=== PATIENT | female | born 1970 | race Hispanic/Latino ===

== ENCOUNTER 2022-09-25 04:19 | Emergency (ER) | payer SELFPAY ==
[2022-09-25] MEDS ORDERED: NA CHLORIDE 0.9% 1,000 ML ONE (04:54)
[2022-09-25] MEDS ORDERED: ONDANSETRON 4 MG/2 ML VIAL ONE (04:54)
[2022-09-25 05:17] LABS: Urine Blood 2+ (Negative); Urine Glucose Negative (Negative); Urine Protein 2+ (Negative); Urine Specific Gravity >=1.030 (1.005-1.030)
[2022-09-25 05:21] LABS: Urine Specific Gravity/Preg >1.030 (1.005-1.030)
[2022-09-25 05:28] LABS: Urine Bacteria <20 /HPF (<20); Urine Mucus Slight /HPF (None Seen); Urine RBC <5 /HPF (None Seen)
[2022-09-25 05:42] LABS: Absolute Lymphocytes (CBC) 2.3 K/uL (0.7-4.9); Hematocrit 45.2 % (36.0-45.0); Lymphocytes % 21.5 % (15.3-44.8); MCV 87.5 fL (80-100); MPV 10.9 fL (7.6-11.3); RBC Red Blood Cell Count 5.17 M/uL (3.86-4.86)
[2022-09-25 05:47] LABS: Albumin 3.6 g/dL (3.4-5.0); Bilirubin Total 0.2 mg/dL (0.2-1.0); Potassium 3.7 mmol/L (3.5-5.1); Protein, Total 8.3 g/dL (6.4-8.2)
--- NOTE | 2022-09-25 06:43 | ER ---
Nurse's Notes [facility] Name: Jyoti Estes Age: 52 yrs Sex: Female : 1970 Arrival Date: 09/25/2022 Time: 04:27 Bed 6 Private MD: Diagnosis: Vomiting and diarrhea;Gastroenteritis Presentation: 09/25 04:41 Chief complaint: Patient states: I have had N/V/D for 3 days now, last night I went 10 aa9 times, I have not eaten in 3 days due to a lack of appetite. Coronavirus screen: Vaccine status: Patient reports receiving the 2nd dose of the covid vaccine. Ebola Screen: No symptoms or risks identified at this time. Initial Sepsis Screen: Does the patient meet any 2 criteria? No. Patient's initial sepsis screen is negative. Does the patient have a suspected source of infection? No. Patient's initial sepsis screen is negative. Risk Assessment: Do you want to hurt yourself or someone else? Patient reports no desire to harm self or others. Onset of symptoms was September 22, 2022. 04:41 Method Of Arrival: Ambulatory aa9 04:41 Acuity: KRISTIN 3 aa9 Triage Assessment: 04:50 General: Appears comfortable, obese, well groomed, Behavior is calm, cooperative, aa9 appropriate for age. Pain: Complains of pain in abdomen Pain currently is 5 out of 10 on a pain scale. Is intermittent, Also complains of nausea. EENT: No signs and/or symptoms were reported regarding the EENT system. Neuro: Level of Consciousness is awake, alert, obeys commands, Oriented to person, place, time, situation. Cardiovascular: Patient's skin is warm and dry. Respiratory: Airway is patent Respiratory effort is even, unlabored. GI: Abdomen is obese, Abd is soft and non tender X 4 quads. Reports diarrhea, nausea, vomiting. : No signs and/or symptoms were reported regarding the genitourinary system. Derm: Skin is intact, is healthy with good turgor, Skin is dry, Skin is pink, warm \T\ dry. Historical: - Allergies: 04:47 No Known Allergies; aa9 - Home Meds: 04:47 lisinopril 40 mg Oral tab [Active]; carvedilol oral [Active]; aa9 - PMHx: 04:47 Hypertensive disorder; aa9 - PSHx: 04:47 None; aa9 - Immunization history:: Client reports receiving the 2nd dose of the Covid vaccine. - Social history:: Smoking status: Patient denies any tobacco usage or history of. Screenin:51 Abuse screen: Denies threats or abuse. Denies injuries from another. Nutritional aa9 screening: Has had N/V for 3 or more days. Tuberculosis screening: No symptoms or risk factors identified. Fall Risk None identified. Assessment: 04:57 General: Appears in no apparent distress. well groomed, Behavior is calm, cooperative, tw5 appropriate for age. Pain: Complains of pain in abdomen Pain currently is 6 out of 10 on a pain scale. Neuro: Level of Consciousness is awake, alert, obeys commands, Oriented to person, place, time, situation. Respiratory: Airway is patent Trachea midline. GI: Reports diarrhea, nausea, vomiting. 06:17 Reassessment: Patient states feeling better. Patient states symptoms have improved. tw5 General: Behavior is. Vital Signs: 04:41 BP 108 / 48; Pulse 77; Resp 18 S; Pulse Ox 99% on R/A; Weight 104.33 kg (R); Height 5 aa9 ft. 9 in. (175.26 cm) (R); Pain 5/10; 04:57 BP 125 / 77; Pulse 74; Resp 18; Pulse Ox 97% on R/A; tw5 05:15 BP 120 / 75; Pulse 70; Resp 18 S; Pulse Ox 96% on R/A; aa9 05:30 BP 130 / 74; Pulse 65; Resp 18 S; Pulse Ox 98% ; aa9 06:17 BP 125 / 64; Pulse 62; Resp 18; Pulse Ox 100% on R/A; tw5 04:41 Body Mass Index 33.96 (104.33 kg, 175.26 cm) aa9 ED Course: 04:27 Patient arrived in ED. ja2 04:34 Clarissa Thompson, SALAS is Primary Nurse. aa9 04:40 Africa Josue MD is Attending Physician. sd2 04:47 Triage completed. aa9 04:51 Arm band placed on. aa9 04:51 Patient has correct armband on for positive identification. Bed in low position. Call aa9 light in reach. Side rails up X2. Adult w/ patient. Pulse ox on. NIBP on. 04:57 Door closed. Noise minimized. Warm blanket given. 04:57 Initial lab(s) drawn, by me, sent to lab. Inserted saline lock: 20 gauge in right tw5 antecubital area, using aseptic technique. Blood collected. 05:16 Urine Microscopic Only Sent. mm9 05:19 Lipase Sent. tw5 05:19 CMP Sent. tw 05:19 CBC with Diff Sent. tw 05:19 Urine collected: clean catch specimen, cloudy. mm9 06:18 Diet: Patient given water. tw5 06:54 No provider procedures requiring assistance completed. IV discontinued, intact, tw5 bleeding controlled, No redness/swelling at site. Pressure dressing applied. Administered Medications: 05:19 Drug: NS 0.9% 1000 ml Route: IV; Rate: 1000 ml; Site: right antecubital; 06:55 Follow up: Response: No adverse reaction; IV Status: Completed infusion; IV Intake: tw5 1000ml 05:19 Drug: Zofran (Ondansetron) 4 mg Route: IVP; Site: right antecubital; 06:55 Follow up: Response: No adverse reaction; Nausea is decreased Medication: 04:51 VIS not applicable for this client. aa9 Intake: 06:55 IV: 1000ml; Total: 1000ml. Outcome: 06:42 Discharge ordered by . 06:55 Discharged to home ambulatory. 06:55 Condition: improved 06:55 Discharge instructions given to patient, Instructed on discharge instructions, follow up and referral plans. medication usage, Demonstrated understanding of instructions, follow-up care, medications, Prescriptions given X 1. 06:55 Patient left the ED. Signatures: Nat Villasenor ja2 Annika Oh tw5 Africa Josue MD MD sd2 Clarissa Thompson RN RN suman9 Jyoti Morrison mm9 Corrections: (The following items were deleted from the chart) 04:50 04:47 PMHx: None; cheko will9
--- NOTE | 2022-09-25 06:43 | EDPHYS ---
Physician Documentation [facility] Name: Jyoti Estes Age: 52 yrs Sex: Female : 1970 Arrival Date: 09/25/2022 Time: 04:27 Bed 6 Private MD: ED Physician Africa Josue HPI: 09/25 05:09 This 52 yrs old Female presents to ER via Ambulatory with complaints of sd2 Vomiting/Diarrhea. 05:09 52 yo F presents with CC of vomiting and diarrhea for the past 3 days. Denies any sd2 fevers, new food exposures, recent sick contacts or urinary symptoms. Has been able to keep Gatorade down but states unable to keep water down. No prior abdominal surgeries or significant abdominal pain. . Historical: - Allergies: 04:47 No Known Allergies; aa9 - Home Meds: 04:47 lisinopril 40 mg Oral tab [Active]; carvedilol oral [Active]; aa9 - PMHx: 04:47 Hypertensive disorder; aa9 - PSHx: 04:47 None; aa9 - Immunization history:: Client reports receiving the 2nd dose of the Covid vaccine. - Social history:: Smoking status: Patient denies any tobacco usage or history of. ROS: 05:09 Constitutional: Negative for fever, chills, and weight loss, Eyes: Negative for injury, sd2 pain, redness, and discharge, Cardiovascular: Negative for chest pain, palpitations, and edema, Respiratory: Negative for shortness of breath, cough, wheezing. 05:09 : Negative for dysuria, urinary frequency, hesitancy, urgency and hematuria. MS/Extremity: Negative for injury and deformity, Skin: Negative for injury, rash, and discoloration, Neuro: Negative for headache, numbness and tingling. 05:09 Abdomen/GI: Positive for nausea, vomiting, and diarrhea, Negative for abdominal pain, abdominal distension. Exam: 05:09 Constitutional: This is a well developed, well nourished patient who is awake, alert, sd2 and in no acute distress. Head/Face: Normocephalic, atraumatic. Eyes: EOMI, normal conjunctiva bilaterally Chest/axilla: Normal chest wall appearance and motion. Nontender with no deformity. Cardiovascular: Regular rate and rhythm with a normal S1 and S2. No gallops, murmurs, or rubs. 2+ distal pulses. Respiratory: Lungs have equal breath sounds bilaterally, clear to auscultation and percussion. No rales, rhonchi or wheezes noted. No increased work of breathing, no retractions or nasal flaring. Abdomen/GI: Soft, non-tender, with normal bowel sounds. No guarding or rebound. No evidence of tenderness throughout. Skin: Warm, dry with normal turgor. Normal color with no rashes, no lesions, and no evidence of cellulitis. MS/ Extremity: Pulses equal, no cyanosis. Neurovascular intact. Full, normal range of motion. Ambulatory without difficulty. Psych: Awake, alert, with orientation to person, place and time. Behavior, mood, and affect are within normal limits. Vital Signs: 04:41 BP 108 / 48; Pulse 77; Resp 18 S; Pulse Ox 99% on R/A; Weight 104.33 kg (R); Height 5 aa9 ft. 9 in. (175.26 cm) (R); Pain 5/10; 04:57 BP 125 / 77; Pulse 74; Resp 18; Pulse Ox 97% on R/A; tw5 05:15 BP 120 / 75; Pulse 70; Resp 18 S; Pulse Ox 96% on R/A; aa9 05:30 BP 130 / 74; Pulse 65; Resp 18 S; Pulse Ox 98% ; aa9 06:17 BP 125 / 64; Pulse 62; Resp 18; Pulse Ox 100% on R/A; tw5 04:41 Body Mass Index 33.96 (104.33 kg, 175.26 cm) aa9 MDM: 04:40 Patient medically screened. sd2 05:09 Differential diagnosis: gastritis, cholecystitis, pancreatitis, appendicitis, sd2 diverticulitis, viral gastroenteritis, among others. Data reviewed: vital signs, nurses notes. 06:40 Data reviewed: lab test result(s). Counseling: I had a detailed discussion with the sd2 patient and/or guardian regarding: the historical points, exam findings, and any diagnostic results supporting the discharge/admit diagnosis, lab results, the need for outpatient follow up, to return to the emergency department if symptoms worsen or persist or if there are any questions or concerns that arise at home. Medical screen evaluation completed. EMTALA emergency medical condition absent. ED course: Labs reviewed and grossly WNCL. No signs of significant clinical dehydration or electrolyte abnormalities. Benign abdominal exam. Suspect viral gastroenteritis. Pt tolerating PO after Zofran and feeling improved. Will dc home with continued supportive care. Pt verbalizes understanding of discharge plan and strict return precautions. . 09/25 04:47 Order name: CBC with Diff; Complete Time: 06:07 sd2 09/25 04:47 Order name: CMP; Complete Time: 06:07 sd2 09/25 04:47 Order name: Lipase; Complete Time: 06:07 sd2 09/25 04:47 Order name: Urine Microscopic Only; Complete Time: 06:07 sd2 09/25 05:17 Order name: Urine Dipstick-Ancillary; Complete Time: 06:07 EDMS 09/25 05:19 Order name: Urine --Ancillary (enter results); Complete Time: 06:07 wm 09/25 04:47 Order name: Urine Dipstick-Ancillary (obtain specimen); Complete Time: 05:17 sd2 09/25 06:07 Order name: PO challenge; Complete Time: 06:17 sd2 Administered Medications: 05:19 Drug: NS 0.9% 1000 ml Route: IV; Rate: 1000 ml; Site: right antecubital; tw5 06:55 Follow up: Response: No adverse reaction; IV Status: Completed infusion; IV Intake: tw5 1000ml 05:19 Drug: Zofran (Ondansetron) 4 mg Route: IVP; Site: right antecubital; tw5 06:55 Follow up: Response: No adverse reaction; Nausea is decreased tw5 Disposition Summary: 09/25/22 06:42 Discharge Ordered Location: Home sd2 Problem: new sd2 Symptoms: have improved sd2 Condition: Stable sd2 Diagnosis - Vomiting and diarrhea sd2 - Gastroenteritis sd2 Followup: sd2 - With: Private Physician - When: 2 - 3 days - Reason: Recheck today's complaints, Continuance of care, Re-evaluation by your physician Discharge Instructions: - Discharge Summary Sheet sd2 - Food Choices to Help Relieve Diarrhea, Adult sd2 - Diarrhea, Adult sd2 - Nausea and Vomiting, Adult sd2 Forms: - Medication Reconciliation Form sd2 - Thank You Letter sd2 - Antibiotic Education sd2 - Prescription Opioid Use sd2 Prescriptions: - ondansetron 8 mg Oral tablet,disintegrating - take 1 tablet by ORAL route every 8 hours As needed; 15 tablet; Refills: 0, sd2 Product Selection Permitted Signatures: Dispatcher [employer] Annika Murdock tw5 Africa Josue MD MD sd2 Clarissa Thompson RN RN aa9 Corrections: (The following items were deleted from the chart) 04:50 04:47 PMHx: None; aa9 aa9
[2022-09-25 07:21] VITALS: BP 125/64; O2SAT 100
== END 2022-09-25 06:55 | disposition home or self-care (01) ==
LOC: ER 04:19
DX: K52.9 Noninfective gastroenteritis and colitis, unspecified (principal); I10 Essential (primary) hypertension
CPT/HCPCS: 36415; 80053; 81003; 81015; 81025; 83690; 85025; 96361; 96374; 99284; J2405; J7030

== ENCOUNTER 2022-10-10 10:28 | Emergency (ER) | payer SELFPAY ==
--- OUTSIDE RECORDS SUMMARY | 2022-10-10 10:31 | XMS REPORT | Continuity of Care Document ---
:1970 Author Organization [facility] t Address [address] [place] [address] [address] [place] [address] Care Team Providers Name Role Phone Unavailable Unavailable Unavailable Problems This patient has no known problems. Allergies, Adverse Reactions, Alerts This patient has no known allergies or adverse reactions. Medications This patient has no known medications. Procedures This patient has no known procedures. Results This patient has no known results.
--- NOTE | 2022-10-10 12:15 | RAD REPORT ---
EXAM DESCRIPTION: RAD - Ankle Right 3 View - 10/10/2022 11:44 am CLINICAL HISTORY: ankle pain, swelling COMPARISON: No comparisons FINDINGS: No fracture, dislocation or periosteal reaction. No joint effusion seen. No joint space na rrowing. Minimal degenerative spurring seen at the medial malleolus. Patient has a very large spur at the Achilles attachment. Minimal plantar spurring is present. Prominent lateral and anterior ankle s oft tissue swelling present. IMPRESSION: Right ankle soft tissue swelling without fracture or acute bone finding.
--- NOTE | 2022-10-10 12:17 | RAD REPORT ---
EXAM DESCRIPTION: RAD - Foot Right 3 View - 10/10/2022 11:44 am CLINICAL HISTORY: PAIN, twisting injury COMPARISON: No comparisons FINDINGS: The second and third middle phalanges are dislocated dorsally at each PIP joint. No fractu re is identified. No fracture is confirmed. There is no periosteal reaction. No bone destructive hooker ge. Patient has very or spurring the Achilles attachment. No air or foreign body in the soft tissues. IMPRESSION: Dorsal directed dislocation of the second and third middle phalanges. No fracture identi fied.
--- NOTE | 2022-10-10 13:02 | EDPHYS ---
Physician Documentation [facility] Name: Jyoti Estes Age: 52 yrs Sex: Female : 1970 Arrival Date: 10/10/2022 Time: 10:31 Bed 10 Private MD: ED Physician Rene Henderson HPI: 10/10 10:43 This 52 yrs old Female presents to ER via Wheelchair with complaints of Toe jmm Injury, Ankle Injury. 10:43 The patient presents with an injury, pain. Onset: The symptoms/episode began/occurred jmm acutely. Associated signs and symptoms: Pertinent positives: swelling. This is a 52 year old female with a history of htn that presents to the ED with complaints of lower extremity swelling after a fall which occurred in the shower. Denies other injury. . 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 - Social history:: Smoking status: Patient denies any tobacco usage or history of. ROS: 10:43 Constitutional: Negative for fever, chills, and weight loss, Cardiovascular: Negative jmm for chest pain, palpitations, and edema, Respiratory: Negative for shortness of breath, cough, wheezing, and pleuritic chest pain. 10:43 MS/extremity: Positive for pain, swelling. 10:43 All other systems are negative. Exam: 10:43 Constitutional: This is a well developed, well nourished patient who is awake, alert, jmm and in no acute distress. Head/Face: atraumatic. Eyes: EOMI, no conjunctival erythema appreciated ENT: Moist Mucus Membranes Neck: Trachea midline, Supple Chest/axilla: Normal chest wall appearance and motion. Cardiovascular: Regular rate and rhythm. No edema appreciated Respiratory: Normal respirations, no respiratory distress appreciated Abdomen/GI: Non distended Back: Normal ROM Skin: General appearance color normal 10:43 Musculoskeletal/extremity: swelling noted to the right ankle, compartments are soft, full dorsalis pulse, NVI. 10:43 Skin: Appearance: Color: normal in color. 10:43 Neuro: Motor: is normal. 10:43 Psych: Behavior/mood is pleasant, cooperative. Vital Signs: 10:39 BP 164 / 72; Pulse 60; Resp 20; Temp 98.6; Pulse Ox 97% ; Weight 108.86 kg; Height 5 kb3 ft. 9 in. (175.26 cm); Pain 10/10; 12:54 BP 135 / 64; Pulse 60; Resp 18; Pulse Ox 99% on R/A; tm3 13:07 BP 129 / 66; Pulse 64; Resp 18; Pulse Ox 99% on R/A; ld1 10:39 Body Mass Index 35.44 (108.86 kg, 175.26 cm) kb3 MDM: 10:43 Patient medically screened. [facility] 11:22 Data reviewed: vital signs, nurses notes. Counseling: I had a detailed discussion with nikita the patient and/or guardian regarding: the historical points, exam findings, and any diagnostic results supporting the discharge/admit diagnosis. 13:00 Counseling: I had a detailed discussion with the patient and/or guardian regarding: [facility] radiology results, the need for outpatient follow up, to return to the emergency department if symptoms worsen or persist or if there are any questions or concerns that arise at home. 10/10 10:53 Order name: Ankle Right 3 View XRAY; Complete Time: 12:16 [facility] 10/10 10:53 Order name: Foot Right 3 View XRAY; Complete Time: 12:20 [facility] 10/10 10:54 Order name: Ice pack; Complete Time: 10:54 mm9 10/10 12:25 Order name: Misc. Order: orthoshoe; Complete Time: 12:38 [facility] Administered Medications: No medications were administered Disposition Summary: 10/10/22 13:01 Discharge Ordered Location: Home [facility] Condition: Stable [facility] Diagnosis - 2nd and 3rd Toe Fracture [facility] Followup: nikita - With: Maico Sharpe DPM - When: 2 - 3 days - Reason: Recheck today's complaints, Continuance of care, Re-evaluation by your physician Discharge Instructions: - Discharge Summary Sheet [facility] - Toe Fracture Rehab-[facility] Forms: - Medication Reconciliation Form jmm - Thank You Letter jmkate - Antibiotic Education jm - Prescription Opioid Use [facility] Prescriptions: - Diclofenac Sodium 75 mg Oral Tablet Sustained Release - take 1 tablet by ORAL route 2 times per day; 30 tablet; Refills: 0, Product [facility] Selection Permitted Signatures: Dispatcher [employer] Rene Arndt MD MD cha Mickail, Joel, PA PA jmm Bradberry, Kelly, RN RN kb3 Jyoti Morrison [facility]
--- NOTE | 2022-10-10 13:02 | ER ---
Nurse's Notes [facility] Name: Jyoti Estes Age: 52 yrs Sex: Female : 1970 Arrival Date: 10/10/2022 Time: 10:31 Bed 10 Private MD: Diagnosis: 2nd and 3rd Toe Fracture Presentation: 10/10 10:39 Chief complaint: Patient states: slipped in the shower and twisted her right foot kb3 underneath her. Reports pain to top of right foot, medial and lateral ankle ankle and all toes. Coronavirus screen: Vaccine status: Patient reports receiving the 2nd dose of the covid vaccine. Client indicates they have traveled out of the [place] in the last 14 days. Ebola Screen: Patient negative for fever greater than or equal to 101.5 degrees Fahrenheit, and additional compatible Ebola Virus Disease symptoms Patient denies exposure to infectious person. Patient denies travel to an Ebola-affected area in the 21 days before illness onset. No symptoms or risks identified at this time. Initial Sepsis Screen: Does the patient meet any 2 criteria? No. Patient's initial sepsis screen is negative. Does the patient have a suspected source of infection? No. Patient's initial sepsis screen is negative. Risk Assessment: Do you want to hurt yourself or someone else? Patient reports no desire to harm self or others. Onset of symptoms was October 10, 2022 at 09:00. 10:39 Method Of Arrival: Wheelchair kb3 10:39 Acuity: KRISTIN 4 kb3 Triage Assessment: 10:41 General: Appears in no apparent distress. uncomfortable, Behavior is calm, cooperative. kb3 Pain: Complains of pain in right lateral malleolus, right medial malleolus, dorsum of right foot, right first toe, right second toe, right third toe, right fourth toe, right fifth toe, Right fourth toenail and Right fifth toenail Pain does not radiate. Pain currently is 10 out of 10 on a pain scale. Quality of pain is described as throbbing. 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 - Social history:: Smoking status: Patient denies any tobacco usage or history of. Screenin:42 Abuse screen: Denies threats or abuse. Denies injuries from another. Nutritional kb3 screening: No deficits noted. Tuberculosis screening: No symptoms or risk factors identified. Fall Risk None identified. Assessment: 10:42 Reassessment: Patient appears in no apparent distress at this time. No changes from kb3 previously documented assessment. General: see triage note. Musculoskeletal: Capillary refill < 3 seconds, Swelling present in right lateral malleolus, right medial malleolus and dorsum of right foot Reports pain in right lateral malleolus, right medial malleolus, dorsum of right foot, right first toe, right second toe, right third toe, right fourth toe and right fifth toe. Vital Signs: 10:39 BP 164 / 72; Pulse 60; Resp 20; Temp 98.6; Pulse Ox 97% ; Weight 108.86 kg; Height 5 kb3 ft. 9 in. (175.26 cm); Pain 10/10; 12:54 BP 135 / 64; Pulse 60; Resp 18; Pulse Ox 99% on R/A; tm3 13:07 BP 129 / 66; Pulse 64; Resp 18; Pulse Ox 99% on R/A; ld1 10:39 Body Mass Index 35.44 (108.86 kg, 175.26 cm) kb3 ED Course: 10:31 Patient arrived in ED. rg4 10:32 Giovany Arroyo PA is PHCP. jmm 10:32 Rene Henderson MD is Attending Physician. jmm 10:39 Anahi Woods, RN is Primary Nurse. kb3 10:41 Triage completed. kb3 10:41 Arm band placed on right wrist. kb3 10:42 Patient has correct armband on for positive identification. kb3 10:42 No provider procedures requiring assistance completed. Patient did not have IV access kb3 during this emergency room visit. 10:54 ice pack. mm9 11:46 Ankle Right 3 View XRAY In Process Unspecified. EDMS 11:46 Foot Right 3 View XRAY In Process Unspecified. EDMS 13:01 Maico Sharpe DPM is Referral Physician. breezy Administered Medications: No medications were administered Medication: 10:42 VIS not applicable for this client. kb3 Outcome: 13:01 Discharge ordered by . breezy 13:07 Discharged to home ambulatory. ld1 13:07 Condition: stable 13:07 Discharge instructions given to patient, family, Instructed on discharge instructions, follow up and referral plans. medication usage, Demonstrated understanding of instructions, follow-up care, medications, Prescriptions given X 1. 13:08 Patient left the ED. ld1 Signatures: Dispatcher [employer] EDMS Sudhir Glynn tm3 Giovany Arroyo PA PA jmm Garcia, Rubi rg4 Fouzia Heredia, RN RN ld1 Anahi Woods, RN RN kb3 Jyoti Morrison mm9
[2022-10-10 13:21] VITALS: TEMP 98.6
[2022-10-10 13:22] VITALS: O2SAT 99
[2022-10-10 13:24] VITALS: BP 129/66
== END 2022-10-10 13:08 | disposition home or self-care (01) ==
LOC: ER 10:28
DX: S92.501A Displaced unspecified fracture of right lesser toe(s), initial encounter for closed fracture (principal)
CPT/HCPCS: 99283

== ENCOUNTER 2023-08-22 08:42 | Emergency (ER) | payer SELFPAY ==
--- OUTSIDE RECORDS SUMMARY | 2023-08-22 08:45 | XMS REPORT | Continuity of Care Document ---
:1970 Author Organization [facility] t Address [address] [place] [id number] Care Team Providers Name Role Phone Unavailable Unavailable Unavailable Problems This patient has no known problems. Allergies, Adverse Reactions, Alerts This patient has no known allergies or adverse reactions. Medications This patient has no known medications. Procedures This patient has no known procedures. Results This patient has no known results.
--- NOTE | 2023-08-22 09:13 | ER ---
Nurse's Notes [facility] Name: Jyoti Estes Age: 53 yrs Sex: Female : 1970 Arrival Date: 08/22/2023 Time: 08:42 Bed 8 Private MD: Diagnosis: Cellulitis, foot bleeding Presentation: 08/22 09:00 Chief complaint: Patient states: Small wound to R foot that wont stop oozing blood. Has ll1 dry, cracked feet. Coronavirus screen: Vaccine status: Patient reports receiving the 2nd dose of the covid vaccine. Client denies travel out of the [place] in the last 14 days. At this time, the client does not indicate any symptoms associated with coronavirus-19. Ebola Screen: Patient denies travel to an Ebola-affected area in the 21 days before illness onset. Initial Sepsis Screen: Does the patient meet any 2 criteria? No. Patient's initial sepsis screen is negative. Does the patient have a suspected source of infection? Yes: Skin breakdown/wound. Risk Assessment: Do you want to hurt yourself or someone else? Patient reports no desire to harm self or others. Onset of symptoms was August 22, 2023. 09:00 Method Of Arrival: Ambulatory ll1 09:00 Acuity: KRISTIN 4 ll1 Historical: - Allergies: 09:02 No Known Allergies; ll1 - PMHx: 09:02 Hypertensive disorder; ll1 - PSHx: 09:02 breast SX (Hypertensive disorder); hand SX (Hypertensive disorder); ll1 - Immunization history:: Adult Immunizations up to date. - Social history:: Smoking status: Patient denies any tobacco usage or history of. Screenin:04 [facility] ED Fall Risk Assessment (Adult) History of falling in the last 3 months, ld1 including since admission No falls in past 3 months (0 pts). Abuse screen: Denies threats or abuse. Denies injuries from another. Nutritional screening: No deficits noted. Tuberculosis screening: No symptoms or risk factors identified. Assessment: 09:04 General: Appears in no apparent distress. comfortable, Behavior is calm, cooperative, ld1 appropriate for age. Pain: Complains of pain in lateral side of right heel Pain does not radiate. Pain currently is 7 out of 10 on a pain scale. Quality of pain is described as throbbing, Pain began 2-3 days ago. Is continuous. Neuro: Level of Consciousness is awake, alert, obeys commands, Oriented to person, place, time, situation. Cardiovascular: Capillary refill < 3 seconds Patient's skin is warm and dry. Respiratory: Airway is patent Respiratory effort is even, unlabored. GI: Abdomen is round non-distended. : No signs and/or symptoms were reported regarding the genitourinary system. EENT: No signs and/or symptoms were reported regarding the EENT system. Derm: Wound noted right foot Reports Getting pedicure 2 weeks ago and they cut her right heal. C/O pain to right foot. Musculoskeletal: No signs and/or symptoms reported regarding the musculoskeletal system. 09:06 Reassessment: ERP at bedside assessing patient. Applied antibiotic ointment to patient ld1 right heal and dressed wound. Vital Signs: 09:00 BP 148 / 81; Pulse 55; Resp 17; Temp 97.2; Pulse Ox 98% ; Weight 108.86 kg; Height 5 ll1 ft. 9 in. ; Pain 8/10; 09:04 BP 148 / 81; Pulse 84; Resp 18; Pulse Ox 100% on R/A; Pain 7/10; ld1 09:00 Body Mass Index 35.44 (108.86 kg, 175.26 cm) ll1 09:00 Pain Scale: Adult ll1 09:04 Pain Scale: Adult ld1 ED Course: 08:44 Patient arrived in ED. rg4 08:44 Marc Roth MD is Attending Physician. sp3 09:02 Triage completed. ll1 09:02 Arm band placed on Patient placed in an exam room, on a stretcher. ll1 09:04 Fouzia Giles, SALAS is Primary Nurse. ld1 09:04 Patient has correct armband on for positive identification. Bed in low position. Call ld1 light in reach. Side rails up X2. Pulse ox on. NIBP on. residential monitor on. Door closed. Noise minimized. Warm blanket given. 09:04 No provider procedures requiring assistance completed. Patient did not have IV access ld1 during this emergency room visit. Administered Medications: 09:07 Drug: Leclpobz-Rhftiuajxf-Yracrxlkm Topical Ointment 1 application Topical once Route: ld1 Topical; Site: affected area; Medication: 09:04 VIS not applicable for this client. ld1 Outcome: 09:12 Discharge ordered by . sp3 09:18 Discharged to home ambulatory, ld1 09:18 Condition: stable 09:18 Discharge instructions given to patient, Instructed on discharge instructions, follow up and referral plans. medication usage, Demonstrated understanding of instructions, follow-up care, medications, Prescriptions given X 1, :18 Patient left the ED. ld1 Signatures: Lety Pizarro rg4 Declan Rowe RN RN ll1 Fouzia Giles RN RN ld1 Marc Roth MD MD sp3 Corrections: (The following items were deleted from the chart) 09:02 09:00 Chief complaint: Patient states: Small wound to R foot that wont stop oozing ll1 blood. Had cracked feet. ll1
--- NOTE | 2023-08-22 09:13 | EDPHYS ---
Physician Documentation [facility] Name: Jyoti Estes Age: 53 yrs Sex: Female : 1970 Arrival Date: 08/22/2023 Time: 08:42 Bed 8 Private MD: ED Physician Marc Roth HPI: 08/22 09:07 This 53 yrs old Female presents to ER via Ambulatory with complaints of Foot sp3 Problem. 09:07 53-year-old female with history of hypertension presents to the ED with 2-day history sp3 of right-sided posterior lateral foot pain, drainage and mild bleeding subsequent to getting pedicure and skin abrasion during that process. Patient denies any direct trauma otherwise and has had no prior foot injury, surgery or other complication in the past. Review of systems are otherwise negative and she denies any proximal joint pain, difficulty walking, bleeding in other places, leg swelling, calf pain, prolonged immobilization, prior PE or DVT, chest pain, shortness of breath, fever, or any other signs or symptoms at this time.. Historical: - Allergies: 09:02 No Known Allergies; ll1 - PMHx: 09:02 Hypertensive disorder; ll1 - PSHx: 09:02 breast SX (Hypertensive disorder); hand SX (Hypertensive disorder); ll1 - Immunization history:: Adult Immunizations up to date. - Social history:: Smoking status: Patient denies any tobacco usage or history of. ROS: 09:08 Constitutional: Negative for fever, chills, and weight loss, Eyes: Negative for injury, sp3 pain, redness, and discharge, Neck: Negative for injury, pain, and swelling, Cardiovascular: Negative for chest pain, palpitations, and edema, Respiratory: Negative for shortness of breath, cough, wheezing, and pleuritic chest pain, Abdomen/GI: Negative for abdominal pain, nausea, vomiting, diarrhea, and constipation, Back: Negative for injury and pain, Neuro: Negative for headache, weakness, numbness, tingling, and seizure, Psych: Negative for depression, anxiety, suicide ideation, homicidal ideation, and hallucinations, Allergy/Immunology: Negative for hives, rash, and allergies, Endocrine: Negative for neck swelling, polydipsia, polyuria, polyphagia, and marked weight changes, Hematologic/Lymphatic: Negative for swollen nodes, abnormal bleeding, and unusual bruising, 09:08 All other systems are negative, Exam: 09:08 Constitutional: This is a well developed, well nourished patient who is awake, alert, sp3 and in no acute distress. Head/Face: Normocephalic, atraumatic. Eyes: Pupils equal round and reactive to light, extra-ocular motions intact. Lids and lashes normal. Conjunctiva and sclera are non-icteric and not injected. Cornea within normal limits. Periorbital areas with no swelling, redness, or edema. Neck: Trachea midline, no thyromegaly or masses palpated, and no cervical lymphadenopathy. Supple, full range of motion without nuchal rigidity, or vertebral point tenderness. No Meningismus. Chest/axilla: Normal chest wall appearance and motion. Nontender with no deformity. No lesions are appreciated. Cardiovascular: Regular rate and rhythm with a normal S1 and S2. No gallops, murmurs, or rubs. Normal PMI, no JVD. No pulse deficits. Respiratory: Lungs have equal breath sounds bilaterally, clear to auscultation and percussion. No rales, rhonchi or wheezes noted. No increased work of breathing, no retractions or nasal flaring. Abdomen/GI: Soft, non-tender, with normal bowel sounds. No distension or tympany. No guarding or rebound. No evidence of tenderness throughout. Back: No spinal tenderness. No costovertebral tenderness. Full range of motion. Skin: Warm, dry with normal turgor. Normal color with no rashes, no lesions, and no evidence of cellulitis. Neuro: Awake and alert, GCS 15, oriented to person, place, time, and situation. Cranial nerves II-XII grossly intact. Motor strength 5/5 in all extremities. Sensory grossly intact. Cerebellar exam normal. Normal gait. Psych: Awake, alert, with orientation to person, place and time. Behavior, mood, and affect are within normal limits. 09:08 Musculoskeletal/extremity: Patient has approximate 1 cm area of abrasion/possible infection with serosanguineous plus blood drainage on the posterior lateral aspect of the foot not on the plantar surface. Remainder of foot exam including neurovascular status is normal. There is no proximal abnormality including calf swelling.. Vital Signs: 09:00 BP 148 / 81; Pulse 55; Resp 17; Temp 97.2; Pulse Ox 98% ; Weight 108.86 kg; Height 5 ll1 ft. 9 in. ; Pain 8/10; 09:04 BP 148 / 81; Pulse 84; Resp 18; Pulse Ox 100% on R/A; Pain 7/10; ld1 09:00 Body Mass Index 35.44 (108.86 kg, 175.26 cm) ll1 09:00 Pain Scale: Adult ll1 09:04 Pain Scale: Adult ld1 MDM: 08:58 Patient medically screened. sp3 09:11 Data reviewed: vital signs, nurses notes. ED course: Patient likely has a mild sp3 infection/bleeding from the pedicure with a scraped off the skin excess on her foot. We will treat with triple antibiotic and dressing here in the ED. There is no active bleeding. We will discharge her on p.o. Bactrim and OTC topical ointment at this time.. Administered Medications: 09:07 Drug: Cababpsi-Lgexbdaioo-Nkkzjorud Topical Ointment 1 application Topical once Route: ld1 Topical; Site: affected area; Disposition Summary: 08/22/23 09:12 Discharge Ordered Notes: Location: Home sp3 Condition: Stable sp3 Diagnosis - Cellulitis, foot bleeding sp3 Followup: sp3 - With: Private Physician - When: Upon discharge from the Emergency Department - Reason: If symptoms return Discharge Instructions: - Discharge Summary Sheet sp3 - Cellulitis, Adult sp3 Forms: - Medication Reconciliation Form sp3 - Thank You Letter sp3 - Antibiotic Education sp3 - Prescription Opioid Use sp3 - Patient Portal Instructions sp3 - Leadership Thank You Letter sp3 Prescriptions: - Bactrim DS 800-160 mg Oral tablet - take 1 tablet ORAL route every 12 hours for 5 days; 10 tablet; Refills: 0, sp3 Product Selection Permitted Signatures: Declan Rowe RN RN ll1 Fouzia Giles RN RN ld1 Marc Roth MD MD sp3
[2023-08-22] MEDS ORDERED: BACI/NEOMYCIN/POLY OINT 15GM TOP ONE (09:21)
[2023-08-22 09:33] VITALS: BP 148/81; TEMP 97.2
[2023-08-22 09:34] VITALS: O2SAT 100
== END 2023-08-22 09:18 | disposition home or self-care (01) ==
LOC: ER 08:42
DX: L03.115 Cellulitis of right lower limb (principal)
CPT/HCPCS: 99284

== ENCOUNTER 2023-09-21 11:16 | Emergency (ER) | payer SELFPAY ==
--- OUTSIDE RECORDS SUMMARY | 2023-09-21 11:52 | XMS REPORT | Continuity of Care Document ---
:1970 Author Organization [facility] t Address [address] [place] [id number] Care Team Providers Name Role Phone Unavailable Unavailable Unavailable Problems This patient has no known problems. Allergies, Adverse Reactions, Alerts This patient has no known allergies or adverse reactions. Medications This patient has no known medications. Procedures This patient has no known procedures. Results This patient has no known results.
--- NOTE | 2023-09-21 12:10 | RAD REPORT ---
EXAM DESCRIPTION: RAD - Foot Right 3 View - 09/21/2023 11:52 am CLINICAL HISTORY: infection COMPARISON: Foot Right 3 View dated 10/10/2022 TECHNIQUE: Right foot, 3 views. FINDINGS: No fracture, dislocation or periosteal reaction. Large spur at the Achilles tendon attachment. Soft tissue swelling and irregularity along the sole of the foot. No air or foreign body in the soft tissues. IMPRESSION: No acute abnormalities. Soft tissue swelling at the sole of the foot. Large spur at the Achilles tendon attachment.
[2023-09-21 12:31] LABS: Absolute Lymphocytes (CBC) 2.7 K/uL (0.7-4.9); Hematocrit 39.3 % (36.0-45.0); Lymphocytes % 22.4 % (15.3-44.8); MPV 10.9 fL (7.6-11.3); Platelets 144 thou/uL (152-406); RBC Red Blood Cell Count 4.52 M/uL (3.86-4.86)
[2023-09-21 12:51] LABS: Albumin 3.4 g/dL (3.4-5.0); Bilirubin Total 0.4 mg/dL (0.2-1.0); Potassium 3.7 mEq/L (3.5-5.1); Protein, Total 8.3 g/dL (6.4-8.2)
[2023-09-21 13:28] LABS: Blood Morphology Comment NOT SEEN (NOT SEEN); Platelet Estimate DECR; Platelets, Giant PRESENT; White Blood Cell Scan OK (OK)
--- NOTE | 2023-09-21 13:45 | EDPHYS ---
Physician Documentation [facility] Name: Jyoti Estes Age: 53 yrs Sex: Female : 1970 Arrival Date: 09/21/2023 Time: 11:16 Bed 4 Private MD: ED Physician Rocky Ritchie HPI: 09/21 16:27 This 53 yrs old Female presents to ER via Ambulatory with complaints of Wound rt Infection - Right foot. 16:27 Patient presents to the ED with reported infection to the right foot. Patient reported rt having cellulitis to the foot after pedicure, received a round of Bactrim which improved her symptoms. The past few days, she noted worsening to the wound. Denies fever, chills. Denies other acute complaints, symptoms are moderate severity, no other aggravating elevating factors.. Historical: - Allergies: 11:38 No Known Allergies; mb9 - Home Meds: 11:36 lisinopril 40 mg Oral tab [Active]; carvedilol Oral [Active]; mb9 - PMHx: 11:36 Hypertensive disorder; mb9 - PSHx: 11:36 Breast sx (en); hand SX (en); mb9 - Immunization history:: Adult Immunizations up to date. - Social history:: Smoking status: Patient denies any tobacco usage or history of. - Family history:: not pertinent. ROS: 16:27 Constitutional: Negative for fever, chills, and weight loss, Cardiovascular: Negative rt for chest pain, palpitations, and edema, Respiratory: Negative for shortness of breath, cough, wheezing, and pleuritic chest pain, Abdomen/GI: Negative for abdominal pain, nausea, vomiting, diarrhea, and constipation, MS/Extremity: Negative for injury and deformity, Neuro: Negative for headache, weakness, numbness, tingling, and seizure, Psych: Negative for depression, anxiety, suicide ideation, homicidal ideation, and hallucinations, 16:27 Skin: Positive for Wound, redness, Exam: 16:27 Musculoskeletal/extremity: Immediately on the right foot, there is a small area of rt erythema, with small eschar noted. No purulence. Pulses, motor, sensation intact. 16:27 Constitutional: This is a well developed, well nourished patient who is awake, alert, rt and in no acute distress. Head/Face: Normocephalic, atraumatic. Chest/axilla: Normal chest wall appearance and motion. Nontender with no deformity. No lesions are appreciated. Cardiovascular: Regular rate and rhythm with a normal S1 and S2. No gallops, murmurs, or rubs. Normal PMI, no JVD. No pulse deficits. Respiratory: Lungs have equal breath sounds bilaterally, clear to auscultation and percussion. No rales, rhonchi or wheezes noted. No increased work of breathing, no retractions or nasal flaring. Abdomen/GI: Soft, non-tender, with normal bowel sounds. No distension or tympany. No guarding or rebound. No evidence of tenderness throughout. Neuro: Awake and alert, GCS 15, oriented to person, place, time, and situation. Cranial nerves II-XII grossly intact. Motor strength 5/5 in all extremities. Sensory grossly intact. Cerebellar exam normal. Normal gait. Psych: Awake, alert, with orientation to person, place and time. Behavior, mood, and affect are within normal limits. Vital Signs: 11:35 BP 167 / 89; Pulse 52; Resp 18; Temp 97.8; Pulse Ox 97% on R/A; Weight 104.33 kg; mb9 Height 5 ft. 9 in. ; 12:20 BP 165 / 83; Pulse 54; Resp 16; Pulse Ox 99% on R/A; rs5 13:01 BP 160 / 82; Pulse 53; Resp 17; Pulse Ox 99% on R/A; rs5 14:01 BP 170 / 91; Pulse 56; Resp 17; Pulse Ox 99% on R/A; rs5 11:35 Body Mass Index 33.96 (104.33 kg, 175.26 cm) mb9 MDM: 11:38 Patient medically screened. rt 16:27 Differential diagnosis: Cellulitis, abscess. Data reviewed: vital signs, nurses notes, rt lab test result(s), radiologic studies. Independent interpretation of the following test(s) in the Emergency Department X-Ray: My interpretation is No fracture seen on interpretation of x-ray images. Test considered but Not performed: CT: Very low suspicion for necrotizing fasciitis, deep abscess, osteomyelitis, CT, MRI not indicated. Care significantly affected by the following chronic conditions: Hypertension. Counseling: I had a detailed discussion with the patient and/or guardian regarding the historical points, exam findings, and any diagnostic results supporting the discharge/admit diagnosis, lab results, radiology results, the need for outpatient follow up, to return to the emergency department if symptoms worsen or persist or if there are any questions or concerns that arise at home. 09/21 11:39 Order name: CBC with Diff; Complete Time: 13:38 rt 09/21 11:39 Order name: CMP; Complete Time: 12:54 rt 09/21 13:29 Order name: CBC Smear Scan; Complete Time: 13:38 EDMS 09/21 11:39 Order name: Foot Right 3 View XRAY; Complete Time: 12:16 rt Administered Medications: No medications were administered Disposition Summary: 09/21/23 13:44 Discharge Ordered Notes: Location: Home rt Problem: an ongoing problem rt Symptoms: are unchanged rt Condition: Stable rt Diagnosis - Wound to right foot rt Followup: rt - With: William Cuevas MD - When: 5 - 6 days - Reason: Discharge Instructions: - Discharge Summary Sheet rt - Wound Care, Adult rt Forms: - Medication Reconciliation Form rt - Thank You Letter rt - Antibiotic Education rt - Prescription Opioid Use rt - Patient Portal Instructions rt - Leadership Thank You Letter rt Prescriptions: - Cephalexin 500 mg Oral capsule - take 1 capsule ORAL route every 8 hours for 7 days; 21 capsule; Refills: 0, rt Product Selection Permitted Signatures: Dispatcher [employer] Shara Sen RN RN Rocky Canales MD MD rt Corrections: (The following items were deleted from the chart) 11:38 11:36 Allergies: No Known Allergies; marybeth rueda
--- NOTE | 2023-09-21 13:45 | ER ---
Nurse's Notes [facility] Name: Jyoti Estes Age: 53 yrs Sex: Female : 1970 Arrival Date: 09/21/2023 Time: 11:16 Bed 4 Private MD: Diagnosis: Wound to right foot Presentation: 09/21 11:35 Chief complaint: Patient states: "I got a Pedicure 1 month ago, and have this infection mb9 on my right heel. It's been getting worse for the past 2 weeks.". Coronavirus screen: At this time, the client does not indicate any symptoms associated with coronavirus-19. Ebola Screen: No symptoms or risks identified at this time. Initial Sepsis Screen: Does the patient meet any 2 criteria? No. Patient's initial sepsis screen is negative. Does the patient have a suspected source of infection? No. Patient's initial sepsis screen is negative. Risk Assessment: Do you want to hurt yourself or someone else? Patient reports no desire to harm self or others. Onset of symptoms was September 21, 2023. 11:35 Method Of Arrival: Ambulatory mb9 11:35 Acuity: KRITSIN 3 mb9 Triage Assessment: 11:37 General: Appears in no apparent distress. Behavior is calm, cooperative, appropriate mb9 for age. Pain: Complains of pain in right foot. EENT: No signs and/or symptoms were reported regarding the EENT system. Neuro: Bourne Agitation-Sedation Scale (RASS): 0 - Alert and Calm Level of Consciousness is awake, alert, obeys commands, Oriented to person, place, time, situation, Appropriate for age. Cardiovascular: Patient's skin is warm and dry. Respiratory: Airway is patent Respiratory effort is even, unlabored, Respiratory pattern is regular, symmetrical. GI: Abdomen is round non-distended, Patient currently denies diarrhea, nausea, pain, vomiting. : No signs and/or symptoms were reported regarding the genitourinary system. Derm: Skin is pink, warm \\T\\ dry. Historical: - Allergies: 11:38 No Known Allergies; mb9 - Home Meds: 11:36 lisinopril 40 mg Oral tab [Active]; carvedilol Oral [Active]; mb9 - PMHx: 11:36 Hypertensive disorder; mb9 - PSHx: 11:36 Breast sx (en); hand SX (en); mb9 - Immunization history:: Adult Immunizations up to date. - Social history:: Smoking status: Patient denies any tobacco usage or history of. - Family history:: not pertinent. Screenin:35 [facility] ED Fall Risk Assessment (Adult) History of falling in the last 3 months, rs5 including since admission No falls in past 3 months (0 pts) Confusion or Disorientation No (0 pts) Intoxicated or Sedated No (0 pts) Impaired Gait Yes (1 pt) Mobility Assist Device Used Yes (1 pt) Altered Elimination No (0 pt) Score/Fall Risk Level 0 - 2 = Low Risk Oriented to surroundings, Maintained a safe environment, Educated pt \\T\\ family on fall prevention, incl call for assistance when getting out of bed. Abuse screen: Denies threats or abuse. Nutritional screening: No deficits noted. Tuberculosis screening: No symptoms or risk factors identified. Assessment: 11:35 General: Appears in no apparent distress. comfortable, Behavior is calm, cooperative. rs5 Pain: Complains of pain in right foot Pain does not radiate. Pain currently is 3 out of 10 on a pain scale. Quality of pain is described as aching, Pain began 1 day ago. Is continuous. Neuro: Level of Consciousness is awake, alert, obeys commands, Oriented to person, place, time, situation. Cardiovascular: Heart tones S1 S2 present Rhythm is regular. Respiratory: Airway is patent Respiratory effort is even, unlabored, Respiratory pattern is regular, symmetrical, Breath sounds are clear bilaterally. GI: Abdomen is round non-distended, Bowel sounds present X 4 quads. Abd is soft and non tender X 4 quads. : No signs and/or symptoms were reported regarding the genitourinary system. EENT: No signs and/or symptoms were reported regarding the EENT system. Derm: Skin is intact, Skin is pink, warm \\T\\ dry. 11:35 Musculoskeletal: Range of motion: limited in right foot. Musculoskeletal: Reports pain rs5 in right foot since 09/20/23 pt denies injury to right lower extremity. Pt states "I had a pedicure a couple of days ago, they scraped the heel of my right foot and it hasn't healed. I am not a diabetic .". 12:40 Reassessment: Patient and/or family updated on plan of care and expected duration. Pain rs5 level reassessed. Patient is alert, oriented x 3, equal unlabored respirations, skin warm/dry/pink. 13:30 Reassessment: Patient and/or family updated on plan of care and expected duration. Pain rs5 level reassessed. Patient is alert, oriented x 3, equal unlabored respirations, skin warm/dry/pink. 14:10 Reassessment: [place] provided per pt request. rs5 Vital Signs: 11:35 BP 167 / 89; Pulse 52; Resp 18; Temp 97.8; Pulse Ox 97% on R/A; Weight 104.33 kg; mb9 Height 5 ft. 9 in. ; 12:20 BP 165 / 83; Pulse 54; Resp 16; Pulse Ox 99% on R/A; rs5 13:01 BP 160 / 82; Pulse 53; Resp 17; Pulse Ox 99% on R/A; rs5 14:01 BP 170 / 91; Pulse 56; Resp 17; Pulse Ox 99% on R/A; rs5 11:35 Body Mass Index 33.96 (104.33 kg, 175.26 cm) mb9 ED Course: 11:20 Patient arrived in ED. im 11:21 Rocky Ritchie MD is Attending Physician. rt 11:35 Patient has correct armband on for positive identification. Bed in low position. Call rs5 light in reach. Side rails up X2. 11:36 Triage completed. mb9 11:36 Arm band placed on. mb9 11:54 Foot Right 3 View XRAY In Process Unspecified. EDMS 12:34 Patient placed in an exam room, on a stretcher. ll1 12:57 Benjamin Gerard, SALAS is Primary Nurse. rs5 13:44 William Cuevas MD is Referral Physician. rt 14:20 No provider procedures requiring assistance completed. rs5 14:23 IV discontinued, intact, bleeding controlled, No redness/swelling at site. Pressure iw dressing applied. Administered Medications: No medications were administered Medication: 14:20 VIS not applicable for this client. rs5 Outcome: 13:44 Discharge ordered by MD. rt 14:23 Discharged to home ambulatory, with family, iw 14:23 Condition: good 14:23 Discharge instructions given to patient, family, Instructed on discharge instructions, follow up and referral plans. medication usage, Demonstrated understanding of instructions, follow-up care, medications, Prescriptions given X 1, 14:24 Patient left the ED. iw Signatures: Dispatcher [employer] EDKaylee Groves RN RN iw Declan Rowe RN RN ll1 Dat, Shara Groves RN RN mb9 Rocky Ritchie MD MD rt Benjamin Gerard RN RN rs5 Tiara Bucio Corrections: (The following items were deleted from the chart) 11:38 11:35 BP 167 / 89; Pulse 52bpm; Resp 18bpm; Pulse Ox 97% RA; Temp 97.8F; mb9 mb9 11:38 11:36 Allergies: No Known Allergies; mb9 mb9
[2023-09-21 14:52] VITALS: BP 167/89; TEMP 97.8; O2SAT 97
== END 2023-09-21 14:24 | disposition home or self-care (01) ==
LOC: ER 11:16
DX: L03.115 Cellulitis of right lower limb (principal)
CPT/HCPCS: 36415; 80053; 85025; 99283